=== PATIENT | female | born 1955 | race Caucasian/White ===

== ENCOUNTER → 2016-12-04 | Outpatient (CLI) | payer MEDICARE ==
[~2016-12-04] MED LIST: AVONEX30 MCG/0.5 MR; B COMPLEX1 CAP PO; CALCIUM PLUS1 TA1 PO; CHROMIUM PICO500 MCG PO; CIPROFLOXACIN500 MG PO; CLINDAMYCIN PHOSPH1% TP; FLAXSEED MEAL1 POW; GARLIC1000 MG PO; KLOR-CON M2020 MEQ PO; MINOCYCLINE HC100 MG PO; TRIAMTERENE/HCT1 CAP PO; VICODIN ES 7501 TAB PO; VITAMIN D2000 IU PO; WOMEN'S MULTIVI1 TAB PO; ZINC30 MG PO; [UNRECOGNIZED DRUG - OTHER]
== END | disposition home or self-care (01) ==
LOC: US 14:35
DX: D25.1 Intramural leiomyoma of uterus (principal); N85.4 Malposition of uterus

== ENCOUNTER 2017-04-15 23:23 | Emergency (ER) | payer MEDICARE ==
[~2017-04-15] VITALS: Ht 165.1 cm; Wt 81.6 kg
[2017-04-16 00:10] LABS: BASO % 0.7 % (0.0-1.0); EOS # 0.1 10*3/uL (0.0-0.4); EOS % 1.3 % (1.0-4.0); HEMATOCRIT 41.6 % (37.0-47.0); HEMOGLOBIN 14.1 g/dl (12.0-16.0); LYMPH # 1.3 10*3/uL (1.3-4.4); LYMPH % 28.9 % (27.0-41.0); MEAN CELL VOLUME 94.5 fl (81.0-99.0); MEAN CORPUSCULAR HGB CONC 33.9 g/dl (33.0-37.0); MEAN PLATELET VOLUME 10.6 fl (9.6-12.3); MONO # 0.5 10*3/uL (0.1-1.0); MONO % 10.4 % (3.0-9.0); NEUT # 2.7 10*3/uL (2.3-7.9); NEUT % 58.7 % (47.0-73.0); PLATELET COUNT AUTOMATED 159 10*3/uL (130-400); RED CELL DISTRI WIDTH 13.1 % (0-14.5); WHITE BLOOD COUNT 4.6 10*3/uL (4.8-10.8)
[2017-04-16 00:29] LABS: ALKALINE PHOSPHATASE 89 U/L (45-117); BUN 18 mg/dl (7-24); CHLORIDE 97 mmol/L (98-107); CREATININE 0.84 mg/dL (0.55-1.02); SGOT/AST 15 IU/L (3-35); SGPT/ALT 26 U/L (12-78); SODIUM 135 mmol/L (136-145); TOTAL PROTEIN 7.3 gm/dL (6.4-8.2)
[2017-04-16 00:30] LABS: TROPONIN I < 0.015 ng/ml (<0.045)
== END 2017-04-16 02:49 | disposition home or self-care (01) ==
LOC: ED 23:23
PROVIDERS: Emergency Medicine Emergency Medical Services
DX: R07.89 Other chest pain (principal); G35 Multiple sclerosis; I10 Essential (primary) hypertension; Z79.899 Other long term (current) drug therapy; Z88.8 Allergy status to other drugs, medicaments and biological substances; Z88.3 Allergy status to other anti-infective agents; Z82.49 Family history of ischemic heart disease and other diseases of the circulatory system

== ENCOUNTER → 2017-04-24 | Outpatient (CLI) | payer MEDICARE, OTHER | END | disposition home or self-care (01) | LOC: LAB 02:01 → MRI 08:00 → LAB 09:00 → US 10:00 | DX: K80.20 Calculus of gallbladder without cholecystitis without obstruction (principal); I10 Essential (primary) hypertension; E55.9 Vitamin D deficiency, unspecified; Z79.899 Other long term (current) drug therapy; Z83.3 Family history of diabetes mellitus; Z90.49 Acquired absence of other specified parts of digestive tract ==

== ENCOUNTER → 2017-05-28 | Outpatient (CLI) | payer MEDICARE ==
[2017-05-28 11:12] LABS: THYROXINE (T4) TOTAL 8.3 ug/dl (4.8-13.9)
[2017-05-28 11:20] LABS: THYROID STIM HORMONE (HS) 2.81 uIU/ml (0.358-4.75)
== END | disposition home or self-care (01) ==
LOC: LAB 10:08 → MAMMO 11:00
PROVIDERS: Family Medicine
DX: Z12.31 Encounter for screening mammogram for malignant neoplasm of breast (principal); I10 Essential (primary) hypertension; R53.83 Other fatigue; Z83.49 Family history of other endocrine, nutritional and metabolic diseases

== ENCOUNTER → 2017-12-02 | Outpatient (CLI) | payer MEDICARE | END | disposition home or self-care (01) | LOC: LAB 10:36 | DX: I10 Essential (primary) hypertension (principal); R60.0 Localized edema; Z79.899 Other long term (current) drug therapy ==

== ENCOUNTER 2018-01-07 21:05 | Emergency (ER) | payer MEDICARE ==
[~2018-01-07] VITALS: Wt 88.9 kg
--- NOTE | ~2018-01-07 | EKG ---
[place], [place] ELECTROCARDIOGRAM REPORT NAME: IDA LINCOLN UNIT #: [id number] ROOM: DOCTOR: EPIPHANY DRAFT REPORT BIRTHDATE: [birth year] 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
[2018-01-07 21:49] LABS: BASO % 0.4 % (0.0-1.0); EOS % 0.4 % (1.0-4.0); HEMATOCRIT 41.3 % (37.0-47.0); HEMOGLOBIN 14.3 g/dl (12.0-16.0); LYMPH # 0.8 10*3/uL (1.3-4.4); LYMPH % 18.1 % (27.0-41.0); MEAN CELL VOLUME 92.8 fl (81.0-99.0); MEAN CORPUSCULAR HGB 32.1 pg (27.0-31.0); MEAN CORPUSCULAR HGB CONC 34.6 g/dl (33.0-37.0); MEAN PLATELET VOLUME 10.8 fl (9.6-12.3); MONO # 0.7 10*3/uL (0.1-1.0); MONO % 15.2 % (3.0-9.0); NEUT % 65.7 % (47.0-73.0); PLATELET COUNT AUTOMATED 140 10*3/uL (130-400); RED BLOOD COUNT 4.45 10*6/uL (4.10-5.10); RED CELL DISTRI WIDTH 12.8 % (0-14.5); WHITE BLOOD COUNT 4.5 10*3/uL (4.8-10.8)
[2018-01-07 21:57] LABS: ACT PARTIAL THROMBO TIME 27.9 SECONDS (20.8-31.5)
[2018-01-07 22:09] LABS: ALBUMIN 3.9 gm/dl (3.1-4.5); ALKALINE PHOSPHATASE 78 U/L (45-117); BUN 13 mg/dl (7-24); CHLORIDE 94 mmol/L (98-107); CREATININE 0.74 mg/dL (0.55-1.02); POTASSIUM 3.8 mmol/L (3.5-5.1); SGOT/AST 13 IU/L (3-35); SGPT/ALT 23 U/L (12-78); SODIUM 130 mmol/L (136-145); TOTAL PROTEIN 7.3 gm/dL (6.4-8.2)
[2018-01-07 22:11] LABS: TROPONIN I < 0.015 ng/ml (<0.045)
== END 2018-01-08 00:10 | disposition home or self-care (01) ==
LOC: ED 21:05
PROVIDERS: Emergency Medicine Emergency Medical Services
DX: R07.89 Other chest pain (principal); P74.2 Disturbances of sodium balance of newborn; Z79.899 Other long term (current) drug therapy; Z88.3 Allergy status to other anti-infective agents; Z88.8 Allergy status to other drugs, medicaments and biological substances

== ENCOUNTER → 2018-03-16 | Outpatient (CLI) | payer MEDICARE ==
[2018-03-16 09:54] LABS: BUN 16 mg/dl (7-24); CHLORIDE 100 mmol/L (98-107); CREATININE 0.95 mg/dL (0.55-1.02); POTASSIUM 4.2 mmol/L (3.5-5.1); SODIUM 135 mmol/L (136-145)
== END | disposition home or self-care (01) ==
LOC: LAB 08:56
PROVIDERS: Internal Medicine
DX: I10 Essential (primary) hypertension (principal); E87.1 Hypo-osmolality and hyponatremia

== ENCOUNTER → 2018-03-25 | Outpatient (CLI) | payer MEDICARE ==
[2018-03-25 10:47] LABS: BUN 17 mg/dl (7-24); CHLORIDE 103 mmol/L (98-107); CREATININE 0.73 mg/dL (0.55-1.02); POTASSIUM 3.9 mmol/L (3.5-5.1); SODIUM 140 mmol/L (136-145)
== END | disposition home or self-care (01) ==
LOC: LAB 09:46
PROVIDERS: Internal Medicine
DX: I10 Essential (primary) hypertension (principal); E87.1 Hypo-osmolality and hyponatremia

== ENCOUNTER → 2018-04-05 | Outpatient (CLI) | payer MEDICARE ==
[2018-04-05 10:49] LABS: BUN 15 mg/dl (7-24); CHLORIDE 104 mmol/L (98-107); CREATININE 0.81 mg/dL (0.55-1.02); POTASSIUM 3.8 mmol/L (3.5-5.1); SODIUM 140 mmol/L (136-145)
== END | disposition home or self-care (01) ==
LOC: LAB 09:29
PROVIDERS: Internal Medicine
DX: I10 Essential (primary) hypertension (principal); E87.1 Hypo-osmolality and hyponatremia; N39.0 Urinary tract infection, site not specified; R31.9 Hematuria, unspecified; N13.30 Unspecified hydronephrosis

== ENCOUNTER → 2018-05-07 | Outpatient (CLI) | payer MEDICARE ==
[2018-05-07 12:36] LABS: BUN 20 mg/dl (7-24); CHLORIDE 103 mmol/L (98-107); CREATININE 0.76 mg/dL (0.55-1.02); SODIUM 140 mmol/L (136-145)
== END | disposition home or self-care (01) ==
LOC: LAB 11:31
PROVIDERS: Family Medicine
DX: I10 Essential (primary) hypertension (principal)

== ENCOUNTER → 2018-06-23 | Outpatient (CLI) | payer OTHER ==
[~2018-06-23] MED LIST changes: +BIOTIN1 M1 PO; +LISINOPRIL5 MG PO; +LOPRESSOR25 MG PO; +PROBIOTIC1 EAC1 PO; +TRIAMTERENE & H1 CAP PO; +VITAMIN E400 UNI2 PO
--- NOTE | ~2018-06-23 | EKG ---
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
== END | disposition home or self-care (01) ==
LOC: LAB 14:38
DX: N39.0 Urinary tract infection, site not specified (principal)

== ENCOUNTER 2018-06-28 10:54 | Inpatient (IN) | payer OTHER ==
[~2018-06-28] VITALS: Ht 165.1 cm; Wt 88.9 kg
--- NOTE | ~2018-06-28 | EKG ---
[place], [place] ELECTROCARDIOGRAM REPORT NAME: IDA LINCOLN UNIT #: [id number] ROOM: 515 DOCTOR: AUGUSTUS DRAFT REPORT BIRTHDATE: [birth year] [facility] Test Date: 2018-06-28 Test Time: 11:01:35 Pat Name: IDA LINCOLN Department: Room: [facility] Gender: F Library Assistant: Erica Key : 1955 Requested By: MICHELE SUE Order Number: [id number] Reading MD: Win Yuan MD Measurements Intervals [place] Rate: 72 P: GA: QRS: 73 QRSD: 106 T: 17 QT: 378 QTc: 414 Interpretive Statements Normal sinus rhythm Compared to ECG 01/07/2018 22:07:34 No significant change Electronically Signed On 06-28-2018 16:02:58 PST by Win Yuan MD CM:EKGRPT:ELECTROCARDIOGRAM REPORT 1101 [id number] MICHELE LU DRAFT REPORT
--- NOTE | ~2018-06-28 | EKG ---
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
--- NOTE | ~2018-06-28 | EKG ---
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
[~2018-06-28 10:54] MED LIST changes: -BIOTIN1 M1 PO; -LISINOPRIL5 MG PO; -LOPRESSOR25 MG PO; -PROBIOTIC1 EAC1 PO; -TRIAMTERENE & H1 CAP PO; -VITAMIN E400 UNI2 PO
[2018-06-28 10:55] VITALS: BP 140/63
[2018-06-28 11:22] LABS: BASO % 0.6 % (0.0-1.0); EOS % 0.2 % (1.0-4.0); HEMATOCRIT 44.5 % (37.0-47.0); HEMOGLOBIN 15.1 g/dl (12.0-16.0); LYMPH # 0.9 10*3/uL (1.3-4.4); LYMPH % 19.2 % (27.0-41.0); MEAN CELL VOLUME 95.3 fl (81.0-99.0); MEAN CORPUSCULAR HGB 32.3 pg (27.0-31.0); MEAN CORPUSCULAR HGB CONC 33.9 g/dl (33.0-37.0); MEAN PLATELET VOLUME 9.8 fl (9.6-12.3); MONO # 0.5 10*3/uL (0.1-1.0); NEUT # 3.3 10*3/uL (2.3-7.9); NEUT % 68.8 % (47.0-73.0); PLATELET COUNT AUTOMATED 196 10*3/uL (130-400); RED BLOOD COUNT 4.67 10*6/uL (4.10-5.10); RED CELL DISTRI WIDTH 12.2 % (0-14.5); WHITE BLOOD COUNT 4.8 10*3/uL (4.8-10.8)
[2018-06-28 11:33] LABS: ACT PARTIAL THROMBO TIME 25.5 SECONDS (20.8-31.5)
[2018-06-28 11:38] LABS: ALKALINE PHOSPHATASE 72 U/L (45-117); BUN 19 mg/dl (7-24); CHLORIDE 98 mmol/L (98-107); CREATININE 0.78 mg/dL (0.55-1.02); POTASSIUM 3.9 mmol/L (3.5-5.1); SGOT/AST 13 IU/L (3-35); SGPT/ALT 21 U/L (12-78); SODIUM 133 mmol/L (136-145); TOTAL PROTEIN 7.4 gm/dL (6.4-8.2)
[2018-06-28 11:41] LABS: TROPONIN I < 0.015 ng/ml (<0.045)
[2018-06-28 12:14] VITALS: BP 138/70
[2018-06-28 16:00] VITALS: BP 160/63
[2018-06-28] MEDS ORDERED: PROBIOTIC1 EAC1 PO (16:19)
[2018-06-28] MEDS ORDERED: BIOTIN1 M1 PO (16:20)
[2018-06-28] MEDS ORDERED: VITAMIN E400 UNI2 PO (16:23)
[2018-06-28] MEDS ORDERED: LISINOPRIL5 MG PO (16:56)
[2018-06-28 20:00] VITALS: BP 127/54
[2018-06-29] VITALS: BP 133/64
[2018-06-29 06:49] LABS: BASO % 0.9 % (0.0-1.0); EOS # 0.1 10*3/uL (0.0-0.4); EOS % 1.9 % (1.0-4.0); HEMOGLOBIN 13.2 g/dl (12.0-16.0); LYMPH # 1.8 10*3/uL (1.3-4.4); LYMPH % 39.2 % (27.0-41.0); MEAN CELL VOLUME 95.1 fl (81.0-99.0); MEAN CORPUSCULAR HGB 32.2 pg (27.0-31.0); MEAN CORPUSCULAR HGB CONC 33.8 g/dl (33.0-37.0); MEAN PLATELET VOLUME 10.2 fl (9.6-12.3); MONO # 0.7 10*3/uL (0.1-1.0); MONO % 14.3 % (3.0-9.0); NEUT % 43.5 % (47.0-73.0); PLATELET COUNT AUTOMATED 181 10*3/uL (130-400); RED CELL DISTRI WIDTH 12.3 % (0-14.5); WHITE BLOOD COUNT 4.7 10*3/uL (4.8-10.8)
[2018-06-29 06:57] LABS: ALBUMIN 3.1 gm/dl (3.1-4.5); ALKALINE PHOSPHATASE 60 U/L (45-117); BUN 16 mg/dl (7-24); CHLORIDE 100 mmol/L (98-107); CHOLESTEROL 152 mg/dL (<200); CREATININE 0.64 mg/dL (0.55-1.02); HDL CHOLESTEROL 82 mg/dl (40-60); LDL CHOLESTEROL 62 mg/dL (9-159); PHOSPHOROUS 3.7 mg/dL (2.5-4.9); POTASSIUM 3.6 mmol/L (3.5-5.1); SGOT/AST 10 IU/L (3-35); SGPT/ALT 19 U/L (12-78); SODIUM 136 mmol/L (136-145); TRIGLYCERIDES 39 mg/dl (<150); VLDL CHOLESTEROL 8 mg/dL (6-40)
[2018-06-29 07:33] LABS: VITAMIN D, 25-HYDROXY 57.7 ng/mL (30-100)
[2018-06-29 08:00] VITALS: BP 130/73
[2018-06-29] MEDS ORDERED: TRIAMTERENE & H1 CAP PO (11:01)
[2018-06-29] MEDS ORDERED: LOPRESSOR25 MG PO (14:10)
[2018-06-29 14:22] VITALS: BP 117/79
[2018-06-29 16:00] VITALS: BP 117/79
== END 2018-06-29 17:33 | disposition home or self-care (01) | DRG 309 ==
LOC: ED 10:54 → EDHOLD 13:28 → 5E 13:28
PROVIDERS: Emergency Medicine; Family Medicine; ADMIT Family Medicine
DX: R00.2 Palpitations (principal); E87.1 Hypo-osmolality and hyponatremia; N13.0 Hydronephrosis with ureteropelvic junction obstruction; K21.9 Gastro-esophageal reflux disease without esophagitis; F41.9 Anxiety disorder, unspecified; K80.20 Calculus of gallbladder without cholecystitis without obstruction; R07.89 Other chest pain; R73.9 Hyperglycemia, unspecified; E80.6 Other disorders of bilirubin metabolism; G35 Multiple sclerosis; E66.9 Obesity, unspecified; M19.90 Unspecified osteoarthritis, unspecified site; I10 Essential (primary) hypertension; Z88.1 Allergy status to other antibiotic agents; Z88.8 Allergy status to other drugs, medicaments and biological substances; Z82.49 Family history of ischemic heart disease and other diseases of the circulatory system; Z79.899 Other long term (current) drug therapy; Z68.32 Body mass index [BMI] 32.0-32.9, adult

== ENCOUNTER → 2018-08-05 | Outpatient (CLI) | payer OTHER ==
[~2018-08-05] MED LIST changes: +BIOTIN1 M1 PO; +LISINOPRIL5 MG PO; +LOPRESSOR25 MG PO; +PROBIOTIC1 EAC1 PO; +TRIAMTERENE & H1 CAP PO; +VITAMIN E400 UNI2 PO
== END | disposition home or self-care (01) ==
LOC: MAMMO 09:39
DX: Z12.31 Encounter for screening mammogram for malignant neoplasm of breast (principal)

== ENCOUNTER → 2018-09-20 | Outpatient (CLI) | payer OTHER ==
[2018-09-20 09:15] LABS: BASO % 1.1 % (0.0-1.0); EOS # 0.1 10*3/uL (0.0-0.4); EOS % 3.4 % (1.0-4.0); HEMATOCRIT 39.9 % (37.0-47.0); HEMOGLOBIN 12.6 g/dl (12.0-16.0); LYMPH # 1.2 10*3/uL (1.3-4.4); LYMPH % 33.5 % (27.0-41.0); MEAN CELL VOLUME 98.3 fl (81.0-99.0); MEAN CORPUSCULAR HGB CONC 31.6 g/dl (33.0-37.0); MEAN PLATELET VOLUME 11.2 fl (9.6-12.3); MONO # 0.6 10*3/uL (0.1-1.0); MONO % 15.4 % (3.0-9.0); NEUT # 1.7 10*3/uL (2.3-7.9); NEUT % 46.3 % (47.0-73.0); PLATELET COUNT AUTOMATED 164 10*3/uL (130-400); RED BLOOD COUNT 4.06 10*6/uL (4.10-5.10); WHITE BLOOD COUNT 3.6 10*3/uL (4.8-10.8)
[2018-09-20 09:34] LABS: ALBUMIN 3.3 gm/dl (3.1-4.5); ALKALINE PHOSPHATASE 94 U/L (45-117); BUN 20 mg/dl (7-24); CHLORIDE 107 mmol/L (98-107); CREATININE 0.75 mg/dL (0.55-1.02); POTASSIUM 4.1 mmol/L (3.5-5.1); SGOT/AST 14 IU/L (3-35); SGPT/ALT 22 U/L (12-78); SODIUM 140 mmol/L (136-145); TOTAL PROTEIN 6.5 gm/dL (6.4-8.2)
[2018-09-22 16:05] LABS: % CD19 <1 % (6-23); % CD3 81 % (62-87); % CD4 63 % (32-64); % CD45RA 45 % (28-71); % CD45RO 55 % (28-72); % CD8 21 % (15-46); ABSOLUTE CD19 <1 cells/uL (91-610); ABSOLUTE CD3 1136 cells/uL (570-2400); ABSOLUTE CD4 876 cells/uL (430-1800); ABSOLUTE CD45RA 403 cells/uL (150-870); ABSOLUTE CD45RO 489 cells/uL (190-1050); ABSOLUTE CD8 291 cells/uL (210-1200); ABSOLUTE NATURAL KILLER CELLS 232 cells/uL (78-470); NATURAL KILLER CELLS % 17 % (4-26)
== END | disposition home or self-care (01) ==
LOC: LAB 09-17 10:05
PROVIDERS: Specialist
DX: G35 Multiple sclerosis (principal); Z79.899 Other long term (current) drug therapy

== ENCOUNTER → 2018-10-13 | Outpatient (CLI) | payer OTHER | END | disposition home or self-care (01) | LOC: US 10-11 06:30 | DX: N13.30 Unspecified hydronephrosis (principal) ==

== ENCOUNTER → 2018-12-13 | Outpatient (CLI) | payer OTHER | END | disposition home or self-care (01) | LOC: LAB 11:58 | DX: N39.0 Urinary tract infection, site not specified (principal) ==

== ENCOUNTER → 2019-01-15 | Outpatient (CLI) | payer OTHER | END | disposition home or self-care (01) | LOC: LAB 16:50 | DX: N39.0 Urinary tract infection, site not specified (principal); N13.30 Unspecified hydronephrosis; R31.9 Hematuria, unspecified ==

== ENCOUNTER → 2019-03-07 | Outpatient (CLI) | payer OTHER ==
[2019-03-07 16:13] LABS: BILIRUBIN NEGATIVE (NEGATIVE); BLOOD 3+ (NEGATIVE); CLARITY SL CLOUDY (CLEAR); COLOR YELLOW (YELLOW); GLUCOSE NEGATIVE (NEGATIVE); KETONE NEGATIVE (NEGATIVE); LEUKO ESTERASE NEGATIVE (NEGATIVE); NITRITE NEGATIVE (NEGATIVE); UROBILINOGEN 0.2 E.U./dl (0.2-1.0)
[2019-03-07 16:30] LABS: BACTERIA TRACE; RBC 51-100 rbc/hpf (0-2)
== END | disposition home or self-care (01) ==
LOC: LAB 14:38
PROVIDERS: Specialist
DX: D89.9 Disorder involving the immune mechanism, unspecified (principal); G35 Multiple sclerosis; Z79.899 Other long term (current) drug therapy

== ENCOUNTER → 2019-03-10 | Outpatient (CLI) | payer OTHER | END | disposition home or self-care (01) | LOC: LAB 13:21 | PROVIDERS: Specialist | DX: R19.7 Diarrhea, unspecified (principal) ==

== ENCOUNTER → 2019-05-25 | Outpatient (CLI) | payer OTHER | END | disposition home or self-care (01) | LOC: MRI 09:38 | DX: M47.814 Spondylosis without myelopathy or radiculopathy, thoracic region (principal); G35 Multiple sclerosis; I10 Essential (primary) hypertension ==

== ENCOUNTER → 2019-08-18 | Outpatient (CLI) | payer OTHER | END | disposition home or self-care (01) | LOC: MAMMO 00:32 | DX: Z12.31 Encounter for screening mammogram for malignant neoplasm of breast (principal) ==

== ENCOUNTER → 2019-09-29 | Outpatient (CLI) | payer OTHER ==
[2019-09-29 14:58] LABS: BILIRUBIN NEGATIVE (NEGATIVE); BLOOD NEGATIVE (NEGATIVE); CLARITY SL CLOUDY (CLEAR); COLOR YELLOW (YELLOW); GLUCOSE NEGATIVE (NEGATIVE); KETONE NEGATIVE (NEGATIVE); LEUKO ESTERASE NEGATIVE (NEGATIVE); NITRITE NEGATIVE (NEGATIVE); UROBILINOGEN 0.2 E.U./dl (0.2-1.0)
[2019-09-29 15:05] LABS: BACTERIA 1+; EPITHELIAL CELLS 0-2; RBC 0-2 rbc/hpf (0-2)
== END ==
LOC: LAB 13:54
DX: R10.9 Unspecified abdominal pain (principal)

== ENCOUNTER → 2019-10-10 | Outpatient (CLI) | payer MEDICARE ==
[2019-10-10 12:35] LABS: BASO % 0.9 % (0.0-1.0); EOS # 0.1 10*3/uL (0.0-0.4); EOS % 2.9 % (1.0-4.0); HEMATOCRIT 41.7 % (37.0-47.0); LYMPH # 1.1 10*3/uL (1.3-4.4); MEAN CELL VOLUME 100.2 fl (81.0-99.0); MEAN CORPUSCULAR HGB 32.5 pg (27.0-31.0); MEAN CORPUSCULAR HGB CONC 32.4 g/dl (33.0-37.0); MEAN PLATELET VOLUME 10.2 fl (9.6-12.3); MONO # 0.6 10*3/uL (0.1-1.0); MONO % 12.8 % (3.0-9.0); NEUT # 2.6 10*3/uL (2.3-7.9); NEUT % 59.2 % (47.0-73.0); PLATELET COUNT AUTOMATED 168 10*3/uL (130-400); RED BLOOD COUNT 4.16 10*6/uL (4.10-5.10); RED CELL DISTRI WIDTH 13.4 % (0-14.5); WHITE BLOOD COUNT 4.5 10*3/uL (4.8-10.8)
[2019-10-10 13:17] LABS: VITAMIN D, 25-HYDROXY 52.9 ng/mL (30-100)
[2019-10-12 17:07] LABS: % CD19 <1 % (5-21); % CD3 83 % (62-89); % CD4 65 % (35-68); % CD45RA 38 % (19-62); % CD45RO 62 % (38-81); % CD8 21 % (10-46); ABSOLUTE CD19 <1 cells/uL (74-510); ABSOLUTE CD3 946 cells/uL (660-2200); ABSOLUTE CD4 740 cells/uL (490-1600); ABSOLUTE CD45RA 271 cells/uL (260-1000); ABSOLUTE CD45RO 438 cells/uL (490-1200); ABSOLUTE CD8 236 cells/uL (150-1050); ABSOLUTE NATURAL KILLER CELLS 178 cells/uL (74-620); NATURAL KILLER CELLS % 16 % (5-28)
== END | disposition home or self-care (01) ==
LOC: LAB 11:48
PROVIDERS: Specialist
DX: G35 Multiple sclerosis (principal); E53.8 Deficiency of other specified B group vitamins; E55.9 Vitamin D deficiency, unspecified; E53.9 Vitamin B deficiency, unspecified; Z79.899 Other long term (current) drug therapy

== ENCOUNTER → 2020-02-08 | Outpatient (CLI) | payer MEDICARE ==
[2020-02-10 16:08] LABS: % CD19 0 % (5-21); % CD3 76 % (62-89); % CD4 55 % (35-68); % CD45RA 48 % (19-62); % CD45RO 52 % (38-81); % CD8 22 % (10-46); ABSOLUTE CD19 5 cells/uL (74-510); ABSOLUTE CD3 1011 cells/uL (660-2200); ABSOLUTE CD4 735 cells/uL (490-1600); ABSOLUTE CD45RA 378 cells/uL (260-1000); ABSOLUTE CD45RO 414 cells/uL (490-1200); ABSOLUTE CD8 293 cells/uL (150-1050); ABSOLUTE NATURAL KILLER CELLS 301 cells/uL (74-620); NATURAL KILLER CELLS % 23 % (5-28)
== END | disposition home or self-care (01) ==
LOC: LAB 11:37
PROVIDERS: ATTEND Physician Assistant Medical
DX: D73.9 Disease of spleen, unspecified (principal); D89.9 Disorder involving the immune mechanism, unspecified

== ENCOUNTER → 2020-04-11 | Outpatient (CLI) | payer MEDICARE ==
[2020-04-11 16:15] LABS: BASO % 0.5 % (0.0-1.0); EOS # 0.1 10*3/uL (0.0-0.4); EOS % 2.5 % (1.0-4.0); HEMATOCRIT 41.6 % (37.0-47.0); LYMPH # 1.8 10*3/uL (1.3-4.4); LYMPH % 32.3 % (27.0-41.0); MEAN CELL VOLUME 98.1 fl (81.0-99.0); MEAN CORPUSCULAR HGB 30.9 pg (27.0-31.0); MEAN CORPUSCULAR HGB CONC 31.5 g/dl (33.0-37.0); MEAN PLATELET VOLUME 10.7 fl (9.6-12.3); MONO # 0.6 10*3/uL (0.1-1.0); MONO % 11.2 % (3.0-9.0); NEUT % 53.3 % (47.0-73.0); PLATELET COUNT AUTOMATED 217 10*3/uL (130-400); RED BLOOD COUNT 4.24 10*6/uL (4.10-5.10); WHITE BLOOD COUNT 5.6 10*3/uL (4.8-10.8)
[2020-04-11 16:34] LABS: ALBUMIN 3.8 gm/dl (3.1-4.5); BUN 23 mg/dl (7-24); CHLORIDE 105 mmol/L (98-107); CREATININE 0.79 mg/dL (0.55-1.02); POTASSIUM 4.1 mmol/L (3.5-5.1); SGOT/AST 17 IU/L (3-35); SGPT/ALT 34 U/L (12-78); SODIUM 137 mmol/L (136-145); TOTAL PROTEIN 7.4 gm/dL (6.4-8.2)
[2020-04-11 16:35] LABS: ALKALINE PHOSPHATASE 95 U/L (45-117)
[2020-04-13 17:10] LABS: % CD19 0 % (5-21); % CD3 85 % (62-89); % CD4 63 % (35-68); % CD45RA 44 % (19-62); % CD45RO 56 % (38-81); % CD8 25 % (10-46); ABSOLUTE CD19 4 cells/uL (74-510); ABSOLUTE CD3 1451 cells/uL (660-2200); ABSOLUTE CD4 1086 cells/uL (490-1600); ABSOLUTE CD45RA 439 cells/uL (260-1000); ABSOLUTE CD45RO 556 cells/uL (490-1200); ABSOLUTE CD8 425 cells/uL (150-1050); ABSOLUTE NATURAL KILLER CELLS 252 cells/uL (74-620); CD4:CD8 RATIO 2.52 ratio (0.80-6.17); NATURAL KILLER CELLS % 15 % (5-28)
== END | disposition home or self-care (01) ==
LOC: LAB 15:50
PROVIDERS: ATTEND Specialist
DX: G35 Multiple sclerosis (principal); R53.1 Weakness; R27.0 Ataxia, unspecified; Z79.899 Other long term (current) drug therapy; D89.9 Disorder involving the immune mechanism, unspecified

== ENCOUNTER → 2020-05-14 | Outpatient (CLI) | payer MEDICARE ==
[2020-05-14 10:53] LABS: BASO % 0.8 % (0.0-1.0); EOS # 0.2 10*3/uL (0.0-0.4); EOS % 3.6 % (1.0-4.0); HEMATOCRIT 41.7 % (37.0-47.0); LYMPH # 1.3 10*3/uL (1.3-4.4); LYMPH % 27.1 % (27.0-41.0); MEAN CELL VOLUME 97.9 fl (81.0-99.0); MEAN CORPUSCULAR HGB CONC 31.7 g/dl (33.0-37.0); MONO # 0.7 10*3/uL (0.1-1.0); NEUT # 2.6 10*3/uL (2.3-7.9); NEUT % 53.3 % (47.0-73.0); PLATELET COUNT AUTOMATED 224 10*3/uL (130-400); RED BLOOD COUNT 4.26 10*6/uL (4.10-5.10); RED CELL DISTRI WIDTH 13.8 % (0-14.5); WHITE BLOOD COUNT 4.9 10*3/uL (4.8-10.8)
[2020-05-14 11:19] LABS: ALBUMIN 3.6 gm/dl (3.1-4.5); BUN 23 mg/dl (7-24); CHLORIDE 107 mmol/L (98-107); CREATININE 0.72 mg/dL (0.55-1.02); SGOT/AST 18 IU/L (3-35); SGPT/ALT 34 U/L (12-78); SODIUM 142 mmol/L (136-145)
[2020-05-14 11:21] LABS: ALKALINE PHOSPHATASE 94 U/L (45-117); TOTAL PROTEIN 6.9 gm/dL (6.4-8.2)
[2020-05-16 21:10] LABS: % CD19 0 % (5-21); % CD3 80 % (62-89); % CD4 59 % (35-68); % CD45RA 48 % (19-62); % CD45RO 51 % (38-81); % CD8 25 % (10-46); ABSOLUTE CD19 2 cells/uL (74-510); ABSOLUTE CD3 1084 cells/uL (660-2200); ABSOLUTE CD4 794 cells/uL (490-1600); ABSOLUTE CD45RA 375 cells/uL (260-1000); ABSOLUTE CD45RO 398 cells/uL (490-1200); ABSOLUTE CD8 336 cells/uL (150-1050); ABSOLUTE NATURAL KILLER CELLS 263 cells/uL (74-620); CD4:CD8 RATIO 2.36 ratio (0.80-6.17); NATURAL KILLER CELLS % 19 % (5-28)
== END | disposition home or self-care (01) ==
LOC: LAB 10:33
PROVIDERS: ATTEND Specialist
DX: G35 Multiple sclerosis (principal); D89.9 Disorder involving the immune mechanism, unspecified; R53.1 Weakness; R27.0 Ataxia, unspecified; Z79.899 Other long term (current) drug therapy

== ENCOUNTER → 2020-06-04 | Outpatient (CLI) | payer MEDICARE | END | disposition home or self-care (01) | LOC: LAB 14:00 | PROVIDERS: ATTEND Urology | DX: N20.0 Calculus of kidney (principal) ==

== ENCOUNTER → 2020-06-20 | Outpatient (CLI) | payer MEDICARE ==
[2020-06-20 11:36] LABS: BASO % 0.8 % (0.0-1.0); EOS # 0.1 10*3/uL (0.0-0.4); EOS % 2.3 % (1.0-4.0); HEMATOCRIT 41.4 % (37.0-47.0); LYMPH # 1.1 10*3/uL (1.3-4.4); LYMPH % 21.6 % (27.0-41.0); MEAN CELL VOLUME 96.1 fl (81.0-99.0); MEAN CORPUSCULAR HGB 30.6 pg (27.0-31.0); MEAN CORPUSCULAR HGB CONC 31.9 g/dl (33.0-37.0); MEAN PLATELET VOLUME 10.3 fl (9.6-12.3); MONO # 0.8 10*3/uL (0.1-1.0); MONO % 14.4 % (3.0-9.0); NEUT # 3.2 10*3/uL (2.3-7.9); NEUT % 60.7 % (47.0-73.0); PLATELET COUNT AUTOMATED 219 10*3/uL (130-400); RED BLOOD COUNT 4.31 10*6/uL (4.10-5.10); RED CELL DISTRI WIDTH 12.7 % (0-14.5); WHITE BLOOD COUNT 5.2 10*3/uL (4.8-10.8)
[2020-06-20 12:08] LABS: ALBUMIN 3.7 gm/dl (3.1-4.5); ALKALINE PHOSPHATASE 131 U/L (45-117); BUN 28 mg/dl (7-24); CHLORIDE 105 mmol/L (98-107); CREATININE 0.94 mg/dL (0.55-1.02); POTASSIUM 3.9 mmol/L (3.5-5.1); SGOT/AST 17 IU/L (3-35); SGPT/ALT 96 U/L (12-78); SODIUM 140 mmol/L (136-145); TOTAL PROTEIN 6.9 gm/dL (6.4-8.2)
[2020-06-22 20:08] LABS: % CD19 0 % (5-21); % CD3 83 % (62-89); % CD4 63 % (35-68); % CD45RA 47 % (19-62); % CD45RO 53 % (38-81); % CD8 23 % (10-46); ABSOLUTE CD19 0 cells/uL (74-510); ABSOLUTE CD3 882 cells/uL (660-2200); ABSOLUTE CD4 663 cells/uL (490-1600); ABSOLUTE CD45RA 332 cells/uL (260-1000); ABSOLUTE CD45RO 379 cells/uL (490-1200); ABSOLUTE CD8 244 cells/uL (150-1050); ABSOLUTE NATURAL KILLER CELLS 170 cells/uL (74-620); CD4:CD8 RATIO 2.74 ratio (0.80-6.17); NATURAL KILLER CELLS % 16 % (5-28)
== END | disposition home or self-care (01) ==
LOC: LAB 11:03
PROVIDERS: ATTEND Specialist
DX: G35 Multiple sclerosis (principal); R53.1 Weakness; R27.0 Ataxia, unspecified; D89.89 Other specified disorders involving the immune mechanism, not elsewhere classified; Z79.899 Other long term (current) drug therapy

== ENCOUNTER → 2020-06-29 | Outpatient (CLI) | payer MEDICARE | END | disposition home or self-care (01) | LOC: MRI 00:48 | PROVIDERS: ATTEND Specialist | DX: G35 Multiple sclerosis (principal); R53.1 Weakness; R27.0 Ataxia, unspecified; R53.83 Other fatigue ==

== ENCOUNTER → 2020-07-02 | Outpatient (CLI) | payer MEDICARE | END | disposition home or self-care (01) | LOC: MRI 00:24 | PROVIDERS: ATTEND Specialist | DX: M47.812 Spondylosis without myelopathy or radiculopathy, cervical region (principal); M25.78 Osteophyte, vertebrae; R53.1 Weakness; R27.0 Ataxia, unspecified; R53.83 Other fatigue ==

== ENCOUNTER → 2020-07-23 | Outpatient (CLI) | payer MEDICARE ==
[2020-07-23 12:57] LABS: BASO % 0.7 % (0.0-1.0); EOS # 0.1 10*3/uL (0.0-0.4); EOS % 2.4 % (1.0-4.0); HEMATOCRIT 42.5 % (37.0-47.0); LYMPH # 1.3 10*3/uL (1.3-4.4); LYMPH % 29.2 % (27.0-41.0); MEAN CELL VOLUME 96.8 fl (81.0-99.0); MEAN CORPUSCULAR HGB 31.2 pg (27.0-31.0); MEAN CORPUSCULAR HGB CONC 32.2 g/dl (33.0-37.0); MEAN PLATELET VOLUME 10.8 fl (9.6-12.3); MONO # 0.6 10*3/uL (0.1-1.0); MONO % 12.6 % (3.0-9.0); NEUT # 2.5 10*3/uL (2.3-7.9); NEUT % 54.9 % (47.0-73.0); PLATELET COUNT AUTOMATED 195 10*3/uL (130-400); RED BLOOD COUNT 4.39 10*6/uL (4.10-5.10); RED CELL DISTRI WIDTH 12.7 % (0-14.5); WHITE BLOOD COUNT 4.5 10*3/uL (4.8-10.8)
[2020-07-23 13:23] LABS: ALBUMIN 3.7 gm/dl (3.1-4.5); ALKALINE PHOSPHATASE 106 U/L (45-117); BUN 23 mg/dl (7-24); CHLORIDE 105 mmol/L (98-107); CREATININE 0.74 mg/dL (0.55-1.02); SGOT/AST 9 IU/L (3-35); SGPT/ALT 23 U/L (12-78); SODIUM 140 mmol/L (136-145); TOTAL PROTEIN 7.3 gm/dL (6.4-8.2)
[2020-07-23 14:09] LABS: VITAMIN D, 25-HYDROXY 66.8 ng/mL (30-100)
[2020-07-25 19:06] LABS: % CD19 0 % (5-21); % CD3 80 % (62-89); % CD4 57 % (35-68); % CD45RA 43 % (19-62); % CD45RO 56 % (38-81); % CD8 26 % (10-46); ABSOLUTE CD19 2 cells/uL (74-510); ABSOLUTE CD3 1044 cells/uL (660-2200); ABSOLUTE CD4 740 cells/uL (490-1600); ABSOLUTE CD45RA 271 cells/uL (260-1000); ABSOLUTE CD45RO 355 cells/uL (490-1200); ABSOLUTE CD8 337 cells/uL (150-1050); ABSOLUTE NATURAL KILLER CELLS 257 cells/uL (74-620); CD4:CD8 RATIO 2.19 ratio (0.80-6.17); NATURAL KILLER CELLS % 20 % (5-28)
== END | disposition home or self-care (01) ==
LOC: LAB 12:11
PROVIDERS: ATTEND Nurse Practitioner Family
DX: G35 Multiple sclerosis (principal); E53.8 Deficiency of other specified B group vitamins; E55.9 Vitamin D deficiency, unspecified; D89.89 Other specified disorders involving the immune mechanism, not elsewhere classified; Z79.899 Other long term (current) drug therapy

== ENCOUNTER → 2020-08-21 | Outpatient (CLI) | payer MEDICARE ==
[2020-08-21 10:08] LABS: EOS # 0.1 10*3/uL (0.0-0.4); EOS % 3.4 % (1.0-4.0); HEMATOCRIT 43.7 % (37.0-47.0); LYMPH # 1.3 10*3/uL (1.3-4.4); LYMPH % 32.1 % (27.0-41.0); MEAN CELL VOLUME 96.5 fl (81.0-99.0); MEAN CORPUSCULAR HGB 30.7 pg (27.0-31.0); MEAN CORPUSCULAR HGB CONC 31.8 g/dl (33.0-37.0); MEAN PLATELET VOLUME 10.6 fl (9.6-12.3); MONO # 0.6 10*3/uL (0.1-1.0); MONO % 13.3 % (3.0-9.0); NEUT # 2.1 10*3/uL (2.3-7.9); PLATELET COUNT AUTOMATED 194 10*3/uL (130-400); RED BLOOD COUNT 4.53 10*6/uL (4.10-5.10); RED CELL DISTRI WIDTH 12.9 % (0-14.5); WHITE BLOOD COUNT 4.1 10*3/uL (4.8-10.8)
[2020-08-21 10:38] LABS: ALBUMIN 3.6 gm/dl (3.1-4.5); ALKALINE PHOSPHATASE 106 U/L (45-117); BUN 25 mg/dl (7-24); CHLORIDE 107 mmol/L (98-107); CREATININE 0.83 mg/dL (0.55-1.02); POTASSIUM 4.2 mmol/L (3.5-5.1); SGOT/AST 14 IU/L (3-35); SGPT/ALT 30 U/L (12-78); SODIUM 142 mmol/L (136-145); TOTAL PROTEIN 7.1 gm/dL (6.4-8.2)
[2020-08-23 16:07] LABS: % CD19 0 % (5-21); % CD3 80 % (62-89); % CD4 57 % (35-68); % CD45RA 43 % (19-62); % CD45RO 57 % (38-81); % CD8 24 % (10-46); ABSOLUTE CD19 5 cells/uL (74-510); ABSOLUTE CD3 1044 cells/uL (660-2200); ABSOLUTE CD4 752 cells/uL (490-1600); ABSOLUTE CD45RA 311 cells/uL (260-1000); ABSOLUTE CD45RO 408 cells/uL (490-1200); ABSOLUTE CD8 320 cells/uL (150-1050); ABSOLUTE NATURAL KILLER CELLS 255 cells/uL (74-620); CD4:CD8 RATIO 2.38 ratio (0.80-6.17); NATURAL KILLER CELLS % 19 % (5-28)
== END | disposition home or self-care (01) ==
LOC: LAB 09:47
PROVIDERS: ATTEND Nurse Practitioner Family
DX: E55.9 Vitamin D deficiency, unspecified (principal); G35 Multiple sclerosis; E53.8 Deficiency of other specified B group vitamins; D89.89 Other specified disorders involving the immune mechanism, not elsewhere classified; Z79.899 Other long term (current) drug therapy

== ENCOUNTER → 2020-09-24 | Outpatient (CLI) | payer MEDICARE ==
[2020-09-24 09:27] LABS: BASO % 0.6 % (0.0-1.0); EOS # 0.2 10*3/uL (0.0-0.4); EOS % 2.4 % (1.0-4.0); HEMATOCRIT 40.7 % (37.0-47.0); LYMPH # 1.5 10*3/uL (1.3-4.4); LYMPH % 22.6 % (27.0-41.0); MEAN CELL VOLUME 96.9 fl (81.0-99.0); MEAN CORPUSCULAR HGB 30.7 pg (27.0-31.0); MEAN CORPUSCULAR HGB CONC 31.7 g/dl (33.0-37.0); MEAN PLATELET VOLUME 11.3 fl (9.6-12.3); MONO # 0.8 10*3/uL (0.1-1.0); MONO % 11.4 % (3.0-9.0); NEUT # 4.1 10*3/uL (2.3-7.9); NEUT % 62.7 % (47.0-73.0); PLATELET COUNT AUTOMATED 205 10*3/uL (130-400); RED CELL DISTRI WIDTH 13.7 % (0-14.5); WHITE BLOOD COUNT 6.6 10*3/uL (4.8-10.8)
[2020-09-24 10:03] LABS: CHLORIDE 107 mmol/L (98-107); POTASSIUM 3.9 mmol/L (3.5-5.1); SODIUM 139 mmol/L (136-145)
[2020-09-24 10:57] LABS: ALBUMIN 3.3 gm/dl (3.1-4.5); ALKALINE PHOSPHATASE 105 U/L (45-117); BUN 31 mg/dl (7-24); CREATININE 0.96 mg/dL (0.55-1.02); SGOT/AST 12 IU/L (3-35); SGPT/ALT 21 U/L (12-78)
[2020-09-26 20:07] LABS: % CD19 2 % (5-21); % CD3 79 % (62-89); % CD4 56 % (35-68); % CD45RA 45 % (19-62); % CD45RO 55 % (38-81); % CD8 23 % (10-46); ABSOLUTE CD19 28 cells/uL (74-510); ABSOLUTE CD3 1163 cells/uL (660-2200); ABSOLUTE CD4 833 cells/uL (490-1600); ABSOLUTE CD45RA 437 cells/uL (260-1000); ABSOLUTE CD45RO 540 cells/uL (490-1200); ABSOLUTE CD8 344 cells/uL (150-1050); ABSOLUTE NATURAL KILLER CELLS 277 cells/uL (74-620); CD4:CD8 RATIO 2.43 ratio (0.80-6.17); NATURAL KILLER CELLS % 19 % (5-28)
== END | disposition home or self-care (01) ==
LOC: LAB 08:52
PROVIDERS: ATTEND Nurse Practitioner Family
DX: G35 Multiple sclerosis (principal); E55.9 Vitamin D deficiency, unspecified; E53.8 Deficiency of other specified B group vitamins; D89.89 Other specified disorders involving the immune mechanism, not elsewhere classified; Z79.899 Other long term (current) drug therapy

== ENCOUNTER → 2020-10-22 | Outpatient (CLI) | payer MEDICARE | END | disposition home or self-care (01) | LOC: MAMMO 08-20 10:00 | PROVIDERS: ATTEND Internal Medicine | DX: Z12.31 Encounter for screening mammogram for malignant neoplasm of breast (principal) ==

== ENCOUNTER → 2020-11-02 | Outpatient (CLI) | payer MEDICARE ==
[2020-11-02 08:20] LABS: BASO % 0.5 % (0.0-1.0); EOS # 0.1 10*3/uL (0.0-0.4); EOS % 2.5 % (1.0-4.0); HEMATOCRIT 41.4 % (37.0-47.0); LYMPH # 1.6 10*3/uL (1.3-4.4); LYMPH % 27.8 % (27.0-41.0); MEAN CELL VOLUME 96.7 fl (81.0-99.0); MEAN CORPUSCULAR HGB 31.3 pg (27.0-31.0); MEAN CORPUSCULAR HGB CONC 32.4 g/dl (33.0-37.0); MEAN PLATELET VOLUME 10.3 fl (9.6-12.3); MONO # 0.6 10*3/uL (0.1-1.0); NEUT # 3.4 10*3/uL (2.3-7.9); PLATELET COUNT AUTOMATED 212 10*3/uL (130-400); RED BLOOD COUNT 4.28 10*6/uL (4.10-5.10); RED CELL DISTRI WIDTH 14.4 % (0-14.5); WHITE BLOOD COUNT 5.7 10*3/uL (4.8-10.8)
[2020-11-02 08:56] LABS: ALBUMIN 3.4 gm/dl (3.1-4.5); ALKALINE PHOSPHATASE 106 U/L (45-117); BUN 32 mg/dl (7-24); CHLORIDE 106 mmol/L (98-107); CREATININE 0.91 mg/dL (0.55-1.02); POTASSIUM 3.7 mmol/L (3.5-5.1); SGOT/AST 13 IU/L (3-35); SGPT/ALT 23 U/L (12-78); SODIUM 139 mmol/L (136-145)
== END | disposition home or self-care (01) ==
LOC: LAB 07:49
PROVIDERS: ATTEND Nurse Practitioner Family
DX: E55.9 Vitamin D deficiency, unspecified (principal); E53.8 Deficiency of other specified B group vitamins; G35 Multiple sclerosis; Z79.899 Other long term (current) drug therapy

== ENCOUNTER → 2020-11-06 | Outpatient (CLI) | payer MEDICARE ==
[2020-11-08 16:07] LABS: % CD19 3 % (5-21); % CD3 77 % (62-89); % CD4 56 % (35-68); % CD45RA 45 % (19-62); % CD45RO 55 % (38-81); % CD8 21 % (10-46); ABSOLUTE CD19 44 cells/uL (74-510); ABSOLUTE CD3 1057 cells/uL (660-2200); ABSOLUTE CD4 774 cells/uL (490-1600); ABSOLUTE CD45RA 398 cells/uL (260-1000); ABSOLUTE CD45RO 485 cells/uL (490-1200); ABSOLUTE CD8 292 cells/uL (150-1050); ABSOLUTE NATURAL KILLER CELLS 259 cells/uL (74-620); CD4:CD8 RATIO 2.67 ratio (0.80-6.17); NATURAL KILLER CELLS % 19 % (5-28)
== END | disposition home or self-care (01) ==
LOC: LAB 08:57
PROVIDERS: ATTEND Nurse Practitioner Family
DX: G35 Multiple sclerosis (principal); E53.8 Deficiency of other specified B group vitamins; E55.9 Vitamin D deficiency, unspecified; D89.89 Other specified disorders involving the immune mechanism, not elsewhere classified; Z79.899 Other long term (current) drug therapy

== ENCOUNTER → 2020-12-04 | Outpatient (CLI) | payer MEDICARE ==
[2020-12-04 09:42] LABS: BASO % 0.9 % (0.0-1.0); EOS # 0.2 10*3/uL (0.0-0.4); EOS % 3.4 % (1.0-4.0); HEMATOCRIT 40.9 % (37.0-47.0); LYMPH # 1.6 10*3/uL (1.3-4.4); MEAN CELL VOLUME 97.8 fl (81.0-99.0); MEAN CORPUSCULAR HGB 31.6 pg (27.0-31.0); MEAN CORPUSCULAR HGB CONC 32.3 g/dl (33.0-37.0); MEAN PLATELET VOLUME 10.1 fl (9.6-12.3); MONO # 0.5 10*3/uL (0.1-1.0); NEUT # 2.1 10*3/uL (2.3-7.9); NEUT % 46.5 % (47.0-73.0); PLATELET COUNT AUTOMATED 194 10*3/uL (130-400); RED BLOOD COUNT 4.18 10*6/uL (4.10-5.10); WHITE BLOOD COUNT 4.4 10*3/uL (4.8-10.8)
[2020-12-04 10:21] LABS: ALBUMIN 3.1 gm/dl (3.1-4.5); ALKALINE PHOSPHATASE 105 U/L (45-117); BUN 29 mg/dl (7-24); CHLORIDE 108 mmol/L (98-107); POTASSIUM 3.9 mmol/L (3.5-5.1); SGOT/AST 10 IU/L (3-35); SGPT/ALT 22 U/L (12-78); SODIUM 140 mmol/L (136-145); TOTAL PROTEIN 6.9 gm/dL (6.4-8.2)
== END | disposition home or self-care (01) ==
LOC: LAB 09:21
PROVIDERS: ATTEND Nurse Practitioner Family
DX: E55.9 Vitamin D deficiency, unspecified (principal); D89.89 Other specified disorders involving the immune mechanism, not elsewhere classified; E53.8 Deficiency of other specified B group vitamins; Z79.899 Other long term (current) drug therapy

== ENCOUNTER → 2020-12-10 | Outpatient (CLI) | payer MEDICARE ==
[2020-12-12 19:06] LABS: % CD19 3 % (5-21); % CD3 76 % (62-89); % CD4 54 % (35-68); % CD45RA 50 % (19-62); % CD45RO 50 % (38-81); % CD8 24 % (10-46); ABSOLUTE CD19 63 cells/uL (74-510); ABSOLUTE CD3 1409 cells/uL (660-2200); ABSOLUTE CD4 1006 cells/uL (490-1600); ABSOLUTE CD45RA 523 cells/uL (260-1000); ABSOLUTE CD45RO 519 cells/uL (490-1200); ABSOLUTE CD8 449 cells/uL (150-1050); ABSOLUTE NATURAL KILLER CELLS 377 cells/uL (74-620); CD4:CD8 RATIO 2.25 ratio (0.80-6.17); NATURAL KILLER CELLS % 20 % (5-28)
== END | disposition home or self-care (01) ==
LOC: LAB 11:00
PROVIDERS: ATTEND Specialist
DX: G35 Multiple sclerosis (principal); E55.9 Vitamin D deficiency, unspecified; D89.89 Other specified disorders involving the immune mechanism, not elsewhere classified; E53.8 Deficiency of other specified B group vitamins; Z79.899 Other long term (current) drug therapy

== ENCOUNTER → 2020-12-12 | Outpatient (CLI) | payer MEDICARE | END | disposition home or self-care (01) | LOC: MRI 00:36 | PROVIDERS: ATTEND Specialist | DX: M47.816 Spondylosis without myelopathy or radiculopathy, lumbar region (principal); M48.061 Spinal stenosis, lumbar region without neurogenic claudication; N13.39 Other hydronephrosis ==

== ENCOUNTER → 2020-12-24 | Outpatient (CLI) | payer MEDICARE | END | disposition home or self-care (01) | LOC: LAB 12:00 | PROVIDERS: ATTEND Urology | DX: N20.0 Calculus of kidney (principal) ==

== ENCOUNTER → 2021-02-25 | Outpatient (CLI) | payer MEDICARE ==
[2021-02-25 10:54] LABS: BASO % 0.3 % (0.0-1.0); EOS # 0.1 10*3/uL (0.0-0.4); HEMATOCRIT 40.8 % (37.0-47.0); LYMPH # 1.3 10*3/uL (1.3-4.4); LYMPH % 20.7 % (27.0-41.0); MEAN CELL VOLUME 97.1 fl (81.0-99.0); MEAN CORPUSCULAR HGB 32.4 pg (27.0-31.0); MEAN CORPUSCULAR HGB CONC 33.3 g/dl (33.0-37.0); MEAN PLATELET VOLUME 10.2 fl (9.6-12.3); MONO # 0.7 10*3/uL (0.1-1.0); MONO % 12.1 % (3.0-9.0); NEUT % 65.7 % (47.0-73.0); PLATELET COUNT AUTOMATED 200 10*3/uL (130-400); WHITE BLOOD COUNT 6.1 10*3/uL (4.8-10.8)
[2021-02-25 11:13] LABS: ALBUMIN 3.7 gm/dl (3.1-4.5); ALKALINE PHOSPHATASE 76 U/L (45-117); BUN 17 mg/dl (7-24); CHLORIDE 107 mmol/L (98-107); CREATININE 0.74 mg/dL (0.55-1.02); POTASSIUM 3.7 mmol/L (3.5-5.1); SGOT/AST 13 IU/L (3-35); SGPT/ALT 18 U/L (12-78); SODIUM 140 mmol/L (136-145); TOTAL PROTEIN 7.1 gm/dL (6.4-8.2)
[2021-02-27 21:06] LABS: % CD19 0 % (5-21); % CD3 79 % (62-89); % CD4 58 % (35-68); % CD45RA 37 % (19-62); % CD45RO 63 % (38-81); % CD8 24 % (10-46); ABSOLUTE CD19 0 cells/uL (74-510); ABSOLUTE CD3 962 cells/uL (660-2200); ABSOLUTE CD4 701 cells/uL (490-1600); ABSOLUTE CD45RA 270 cells/uL (260-1000); ABSOLUTE CD45RO 451 cells/uL (490-1200); ABSOLUTE CD8 287 cells/uL (150-1050); ABSOLUTE NATURAL KILLER CELLS 235 cells/uL (74-620); CD4:CD8 RATIO 2.42 ratio (0.80-6.17); NATURAL KILLER CELLS % 19 % (5-28)
== END | disposition home or self-care (01) ==
LOC: LAB 10:35
PROVIDERS: ATTEND Nurse Practitioner Family
DX: G35 Multiple sclerosis (principal); R27.0 Ataxia, unspecified; R53.1 Weakness; D89.89 Other specified disorders involving the immune mechanism, not elsewhere classified; Z79.899 Other long term (current) drug therapy

== ENCOUNTER 2021-05-04 05:12 | Emergency (ER) | payer MEDICARE ==
[~2021-05-04] VITALS: Ht 162.5 cm; Wt 103.4 kg
[2021-05-04 05:54] LABS: ALBUMIN 3.7 gm/dl (3.1-4.5); ALKALINE PHOSPHATASE 94 U/L (45-117); BUN 22 mg/dl (7-24); CHLORIDE 108 mmol/L (98-107); CREATININE 0.85 mg/dL (0.55-1.02); POTASSIUM 3.8 mmol/L (3.5-5.1); SGOT/AST 26 IU/L (3-35); SGPT/ALT 35 U/L (12-78); SODIUM 138 mmol/L (136-145); TOTAL PROTEIN 7.3 gm/dL (6.4-8.2)
[2021-05-04 05:58] LABS: BASO % 0.5 % (0.0-1.0); EOS # 0.2 10*3/uL (0.0-0.4); EOS % 2.7 % (1.0-4.0); HEMATOCRIT 39.1 % (37.0-47.0); LYMPH # 1.3 10*3/uL (1.3-4.4); LYMPH % 22.4 % (27.0-41.0); MEAN CELL VOLUME 98.2 fl (81.0-99.0); MEAN CORPUSCULAR HGB 32.7 pg (27.0-31.0); MEAN CORPUSCULAR HGB CONC 33.2 g/dl (33.0-37.0); MEAN PLATELET VOLUME 11.2 fl (9.6-12.3); MONO # 0.8 10*3/uL (0.1-1.0); MONO % 14.7 % (3.0-9.0); NEUT # 3.3 10*3/uL (2.3-7.9); NEUT % 58.6 % (47.0-73.0); PLATELET COUNT AUTOMATED 220 10*3/uL (130-400); RED BLOOD COUNT 3.98 10*6/uL (4.10-5.10); RED CELL DISTRI WIDTH 13.5 % (0-14.5); WHITE BLOOD COUNT 5.7 10*3/uL (4.8-10.8)
[2021-05-04 06:20] LABS: ACT PARTIAL THROMBO TIME 27.8 SECONDS (20.0-32.1)
== END 2021-05-04 07:27 | disposition home or self-care (01) ==
LOC: ED 05:12
PROVIDERS: Internal Medicine
DX: R07.9 Chest pain, unspecified (principal); M54.2 Cervicalgia; Z88.8 Allergy status to other drugs, medicaments and biological substances; Z79.899 Other long term (current) drug therapy

== ENCOUNTER → 2021-05-22 | Outpatient (CLI) | payer MEDICARE ==
[2021-05-22 13:43] LABS: HEMATOCRIT 41.8 % (37.0-47.0); MEAN CELL VOLUME 100.7 fl (81.0-99.0); MEAN CORPUSCULAR HGB 32.8 pg (27.0-31.0); MEAN CORPUSCULAR HGB CONC 32.5 g/dl (33.0-37.0); MEAN PLATELET VOLUME 10.3 fl (9.6-12.3); PLATELET COUNT AUTOMATED 257 10*3/uL (130-400); RED BLOOD COUNT 4.15 10*6/uL (4.10-5.10); RED CELL DISTRI WIDTH 13.4 % (0-14.5); WHITE BLOOD COUNT 7.1 10*3/uL (4.8-10.8)
[2021-05-22 16:02] LABS: BASOPHILS 2 % (0-1); PLATELET SUFFICIENCY NORMAL (NORMAL); TOTAL CELLS COUNTED 100 #CELLS
[2021-05-22 16:03] LABS: BURR CELLS FEW
[2021-05-22 18:28] LABS: ALBUMIN 3.9 gm/dl (3.1-4.5); ALKALINE PHOSPHATASE 189 U/L (45-117); BUN 24 mg/dl (7-24); CHLORIDE 103 mmol/L (98-107); CREATININE 0.75 mg/dL (0.55-1.02); POTASSIUM 4.4 mmol/L (3.5-5.1); SGOT/AST 91 IU/L (3-35); SGPT/ALT 106 U/L (12-78); SODIUM 140 mmol/L (136-145)
[2021-05-24 19:06] LABS: % CD19 0 % (5-21); % CD3 78 % (62-89); % CD4 56 % (35-68); % CD45RA 45 % (19-62); % CD45RO 55 % (38-81); % CD8 23 % (10-46); ABSOLUTE CD19 0 cells/uL (74-510); ABSOLUTE CD3 1001 cells/uL (660-2200); ABSOLUTE CD4 716 cells/uL (490-1600); ABSOLUTE CD45RA 323 cells/uL (260-1000); ABSOLUTE CD45RO 399 cells/uL (490-1200); ABSOLUTE CD8 301 cells/uL (150-1050); ABSOLUTE NATURAL KILLER CELLS 271 cells/uL (74-620); CD4:CD8 RATIO 2.43 ratio (0.80-6.17); NATURAL KILLER CELLS % 21 % (5-28)
== END ==
LOC: LAB 13:18
PROVIDERS: ATTEND Specialist
DX: G35 Multiple sclerosis (principal); E55.9 Vitamin D deficiency, unspecified; D72.819 Decreased white blood cell count, unspecified; Z79.899 Other long term (current) drug therapy

== ENCOUNTER → 2021-06-03 | Outpatient (CLI) | payer MEDICARE ==
[2021-06-03 13:08] LABS: ALBUMIN 3.5 gm/dl (3.1-4.5); ALKALINE PHOSPHATASE 123 U/L (45-117); BUN 19 mg/dl (7-24); CHLORIDE 103 mmol/L (98-107); CREATININE 0.86 mg/dL (0.55-1.02); SGOT/AST 17 IU/L (3-35); SGPT/ALT 30 U/L (12-78); SODIUM 137 mmol/L (136-145)
== END | disposition home or self-care (01) ==
LOC: LAB 12:20
PROVIDERS: ATTEND Internal Medicine
DX: R74.01 Elevation of levels of liver transaminase levels (principal)

== ENCOUNTER → 2021-07-29 | Outpatient (CLI) | payer MEDICARE ==
[2021-07-29 11:23] LABS: BASO % 0.8 % (0.0-1.0); EOS # 0.2 10*3/uL (0.0-0.4); HEMATOCRIT 43.9 % (37.0-47.0); LYMPH # 1.2 10*3/uL (1.3-4.4); LYMPH % 23.6 % (27.0-41.0); MEAN CELL VOLUME 99.8 fl (81.0-99.0); MEAN CORPUSCULAR HGB 32.5 pg (27.0-31.0); MEAN CORPUSCULAR HGB CONC 32.6 g/dl (33.0-37.0); MEAN PLATELET VOLUME 10.5 fl (9.6-12.3); MONO # 0.7 10*3/uL (0.1-1.0); MONO % 13.9 % (3.0-9.0); NEUT % 58.5 % (47.0-73.0); PLATELET COUNT AUTOMATED 200 10*3/uL (130-400); RED CELL DISTRI WIDTH 12.8 % (0-14.5)
[2021-07-29 11:56] LABS: ALKALINE PHOSPHATASE 116 U/L (45-117); BUN 19 mg/dl (7-24); CHLORIDE 105 mmol/L (98-107); CREATININE 0.75 mg/dL (0.55-1.02); POTASSIUM 4.1 mmol/L (3.5-5.1); SGOT/AST 16 IU/L (3-35); SGPT/ALT 30 U/L (12-78); SODIUM 139 mmol/L (136-145); TOTAL PROTEIN 6.9 gm/dL (6.4-8.2)
[2021-08-01 19:06] LABS: % CD19 0 % (5-21); % CD3 81 % (62-89); % CD4 55 % (35-68); % CD45RA 40 % (19-62); % CD45RO 59 % (38-81); % CD8 25 % (10-46); ABSOLUTE CD19 4 cells/uL (74-510); ABSOLUTE CD3 1107 cells/uL (660-2200); ABSOLUTE CD4 753 cells/uL (490-1600); ABSOLUTE CD45RA 334 cells/uL (260-1000); ABSOLUTE CD45RO 490 cells/uL (490-1200); ABSOLUTE CD8 342 cells/uL (150-1050); ABSOLUTE NATURAL KILLER CELLS 245 cells/uL (74-620); NATURAL KILLER CELLS % 18 % (5-28)
== END | disposition home or self-care (01) ==
LOC: LAB 11:04
PROVIDERS: ATTEND Nurse Practitioner Family
DX: G35 Multiple sclerosis (principal); R53.1 Weakness; D84.821 Immunodeficiency due to drugs; Z79.899 Other long term (current) drug therapy

== ENCOUNTER → 2021-09-11 | Outpatient (CLI) | payer MEDICARE ==
[2021-09-11 10:06] LABS: BASO % 0.6 % (0.0-1.0); EOS # 0.1 10*3/uL (0.0-0.4); EOS % 1.4 % (1.0-4.0); HEMATOCRIT 44.9 % (37.0-47.0); LYMPH # 1.3 10*3/uL (1.3-4.4); MEAN CELL VOLUME 97.6 fl (81.0-99.0); MEAN CORPUSCULAR HGB 32.2 pg (27.0-31.0); MEAN PLATELET VOLUME 10.7 fl (9.6-12.3); MONO # 0.7 10*3/uL (0.1-1.0); MONO % 10.8 % (3.0-9.0); NEUT # 4.2 10*3/uL (2.3-7.9); PLATELET COUNT AUTOMATED 198 10*3/uL (130-400); RED CELL DISTRI WIDTH 12.8 % (0-14.5); WHITE BLOOD COUNT 6.3 10*3/uL (4.8-10.8)
[2021-09-11 10:50] LABS: ALKALINE PHOSPHATASE 103 U/L (45-117); BUN 21 mg/dl (7-24); CHLORIDE 106 mmol/L (98-107); CREATININE 0.81 mg/dL (0.55-1.02); POTASSIUM 3.7 mmol/L (3.5-5.1); SGOT/AST 14 IU/L (3-35); SGPT/ALT 24 U/L (12-78); SODIUM 140 mmol/L (136-145); TOTAL PROTEIN 7.1 gm/dL (6.4-8.2)
[2021-09-13 18:07] LABS: % CD19 3 % (5-21); % CD3 72 % (62-89); % CD4 54 % (35-68); % CD45RA 47 % (19-62); % CD45RO 52 % (38-81); % CD8 20 % (10-46); ABSOLUTE CD19 41 cells/uL (74-510); ABSOLUTE CD3 894 cells/uL (660-2200); ABSOLUTE CD4 672 cells/uL (490-1600); ABSOLUTE CD45RA 314 cells/uL (260-1000); ABSOLUTE CD45RO 349 cells/uL (490-1200); ABSOLUTE CD8 251 cells/uL (150-1050); ABSOLUTE NATURAL KILLER CELLS 300 cells/uL (74-620); NATURAL KILLER CELLS % 24 % (5-28)
== END | disposition home or self-care (01) ==
LOC: LAB 02:47 → US 08:30
PROVIDERS: Nurse Practitioner Family; ATTEND Urology
DX: N13.1 Hydronephrosis with ureteral stricture, not elsewhere classified (principal); G35 Multiple sclerosis; R53.1 Weakness; N13.30 Unspecified hydronephrosis; D84.821 Immunodeficiency due to drugs; Z79.899 Other long term (current) drug therapy

== ENCOUNTER → 2021-10-28 | Outpatient (CLI) | payer MEDICARE ==
[2021-10-28 08:50] LABS: BASO # 0.1 10*3/uL (0.0-0.1); BASO % 0.8 % (0.0-1.0); EOS # 0.3 10*3/uL (0.0-0.4); EOS % 4.4 % (1.0-4.0); HEMATOCRIT 42.9 % (37.0-47.0); LYMPH # 1.6 10*3/uL (1.3-4.4); LYMPH % 25.4 % (27.0-41.0); MEAN CELL VOLUME 96.8 fl (81.0-99.0); MEAN CORPUSCULAR HGB 32.3 pg (27.0-31.0); MEAN CORPUSCULAR HGB CONC 33.3 g/dl (33.0-37.0); MEAN PLATELET VOLUME 10.1 fl (9.6-12.3); MONO # 0.8 10*3/uL (0.1-1.0); MONO % 13.1 % (3.0-9.0); NEUT # 3.4 10*3/uL (2.3-7.9); NEUT % 56.1 % (47.0-73.0); PLATELET COUNT AUTOMATED 223 10*3/uL (130-400); RED BLOOD COUNT 4.43 10*6/uL (4.10-5.10); RED CELL DISTRI WIDTH 13.3 % (0-14.5); WHITE BLOOD COUNT 6.1 10*3/uL (4.8-10.8)
[2021-10-28 09:16] LABS: ALKALINE PHOSPHATASE 117 U/L (45-117); BUN 21 mg/dl (7-24); CHLORIDE 107 mmol/L (98-107); CREATININE 0.82 mg/dL (0.55-1.02); POTASSIUM 3.7 mmol/L (3.5-5.1); SGOT/AST 13 IU/L (3-35); SGPT/ALT 22 U/L (12-78); SODIUM 140 mmol/L (136-145)
[2021-10-30 21:06] LABS: % CD19 3 % (5-21); % CD3 75 % (62-89); % CD4 54 % (35-68); % CD45RA 47 % (19-62); % CD45RO 53 % (38-81); % CD8 23 % (10-46); ABSOLUTE CD19 55 cells/uL (74-510); ABSOLUTE CD3 1281 cells/uL (660-2200); ABSOLUTE CD4 917 cells/uL (490-1600); ABSOLUTE CD45RA 455 cells/uL (260-1000); ABSOLUTE CD45RO 507 cells/uL (490-1200); ABSOLUTE CD8 390 cells/uL (150-1050); ABSOLUTE NATURAL KILLER CELLS 359 cells/uL (74-620); CD4:CD8 RATIO 2.35 ratio (0.80-6.17); NATURAL KILLER CELLS % 21 % (5-28)
== END | disposition home or self-care (01) ==
LOC: LAB 01:52 → MRI 09:00 → LAB 09:00
PROVIDERS: ATTEND Specialist
DX: Z12.31 Encounter for screening mammogram for malignant neoplasm of breast (principal); R53.1 Weakness; D84.821 Immunodeficiency due to drugs; G35 Multiple sclerosis; Z79.899 Other long term (current) drug therapy

== ENCOUNTER → 2021-11-01 | Outpatient (CLI) | payer MEDICARE | END | disposition home or self-care (01) | LOC: RAD 01:50 | PROVIDERS: ATTEND Internal Medicine | DX: M85.88 Other specified disorders of bone density and structure, other site (principal); M81.0 Age-related osteoporosis without current pathological fracture; Z87.39 Personal history of other diseases of the musculoskeletal system and connective tissue ==

== ENCOUNTER → 2021-11-21 | Outpatient (CLI) | payer MEDICARE ==
[2021-11-21 09:51] LABS: THYROXINE (T4) TOTAL 8.2 ug/dl (4.8-13.9)
[2021-11-21 09:57] LABS: THYROID STIM HORMONE (HS) 1.97 uIU/ml (0.358-4.75)
== END | disposition home or self-care (01) ==
LOC: LAB 01:29
PROVIDERS: ATTEND Specialist
DX: G35 Multiple sclerosis (principal); E55.9 Vitamin D deficiency, unspecified; R53.1 Weakness

== ENCOUNTER → 2022-02-06 | Outpatient (CLI) | payer MEDICARE ==
[2022-02-06 13:00] LABS: BUN 18 mg/dl (7-24); CHLORIDE 110 mmol/L (98-107); CREATININE 0.69 mg/dL (0.55-1.02); POTASSIUM 4.2 mmol/L (3.5-5.1); SODIUM 142 mmol/L (136-145)
== END | disposition home or self-care (01) ==
LOC: LAB 12:00
PROVIDERS: ATTEND Urology
DX: G35 Multiple sclerosis (principal); N13.1 Hydronephrosis with ureteral stricture, not elsewhere classified; R10.9 Unspecified abdominal pain

== ENCOUNTER → 2022-04-14 | Outpatient (CLI) | payer MEDICARE ==
[2022-04-14 10:08] LABS: BASO # 0.1 10*3/uL (0.0-0.1); BASO % 1.1 % (0.0-1.0); EOS # 0.1 10*3/uL (0.0-0.4); EOS % 2.4 % (1.0-4.0); HEMATOCRIT 42.2 % (37.0-47.0); LYMPH # 1.4 10*3/uL (1.3-4.4); LYMPH % 26.4 % (27.0-41.0); MEAN CORPUSCULAR HGB 32.9 pg (27.0-31.0); MEAN CORPUSCULAR HGB CONC 32.9 g/dl (33.0-37.0); MEAN PLATELET VOLUME 10.1 fl (9.6-12.3); MONO # 0.6 10*3/uL (0.1-1.0); MONO % 11.4 % (3.0-9.0); NEUT # 3.2 10*3/uL (2.3-7.9); NEUT % 58.5 % (47.0-73.0); PLATELET COUNT AUTOMATED 218 10*3/uL (130-400); RED BLOOD COUNT 4.22 10*6/uL (4.10-5.10); RED CELL DISTRI WIDTH 13.4 % (0-14.5); WHITE BLOOD COUNT 5.5 10*3/uL (4.8-10.8)
[2022-04-14 10:26] LABS: CHLORIDE 104 mmol/L (98-107); SODIUM 138 mmol/L (136-145)
[2022-04-14 10:41] LABS: ALKALINE PHOSPHATASE 93 U/L (45-117); BUN 36 mg/dl (7-24); SGOT/AST 12 IU/L (3-35); SGPT/ALT 29 U/L (12-78)
[2022-04-17 14:07] LABS: % CD19 0 % (5-21); % CD3 84 % (62-89); % CD4 60 % (35-68); % CD45RA 47 % (19-62); % CD45RO 53 % (38-81); % CD8 25 % (10-46); ABSOLUTE CD19 0 cells/uL (74-510); ABSOLUTE CD3 1311 cells/uL (660-2200); ABSOLUTE CD4 942 cells/uL (490-1600); ABSOLUTE CD45RA 486 cells/uL (260-1000); ABSOLUTE CD45RO 552 cells/uL (490-1200); ABSOLUTE CD8 390 cells/uL (150-1050); ABSOLUTE NATURAL KILLER CELLS 237 cells/uL (74-620); NATURAL KILLER CELLS % 15 % (5-28)
== END | disposition home or self-care (01) ==
LOC: LAB 03:51
PROVIDERS: ATTEND Specialist
DX: G35 Multiple sclerosis (principal); D84.821 Immunodeficiency due to drugs; E55.9 Vitamin D deficiency, unspecified; Z79.899 Other long term (current) drug therapy

== ENCOUNTER → 2022-06-25 | Outpatient (CLI) | payer MEDICARE ==
[2022-06-25 10:54] LABS: BASO % 0.8 % (0.0-1.0); EOS # 0.1 10*3/uL (0.0-0.4); EOS % 2.6 % (1.0-4.0); HEMATOCRIT 42.6 % (37.0-47.0); LYMPH # 1.4 10*3/uL (1.3-4.4); MEAN CELL VOLUME 102.4 fl (81.0-99.0); MEAN CORPUSCULAR HGB 32.9 pg (27.0-31.0); MEAN CORPUSCULAR HGB CONC 32.2 g/dl (33.0-37.0); MEAN PLATELET VOLUME 9.9 fl (9.6-12.3); MONO # 0.6 10*3/uL (0.1-1.0); MONO % 12.7 % (3.0-9.0); NEUT # 2.8 10*3/uL (2.3-7.9); NEUT % 56.1 % (47.0-73.0); PLATELET COUNT AUTOMATED 198 10*3/uL (130-400); RED BLOOD COUNT 4.16 10*6/uL (4.10-5.10); RED CELL DISTRI WIDTH 12.3 % (0-14.5)
[2022-06-25 11:09] LABS: ALKALINE PHOSPHATASE 83 U/L (46-116); BUN 22 mg/dl (9-23); CHLORIDE 101 mmol/L (98-107); POTASSIUM 3.9 mmol/L (3.4-5.1); SGPT/ALT 22 U/L (10-49); TOTAL PROTEIN 6.5 gm/dL (6.0-8.0)
[2022-06-29 22:05] LABS: % CD19 0 % (5-21); % CD3 86 % (62-89); % CD4 63 % (35-68); % CD45RA 47 % (19-62); % CD45RO 52 % (38-81); % CD8 24 % (10-46); ABSOLUTE CD19 0 cells/uL (74-510); ABSOLUTE CD3 1180 cells/uL (660-2200); ABSOLUTE CD4 864 cells/uL (490-1600); ABSOLUTE CD45RA 393 cells/uL (260-1000); ABSOLUTE CD45RO 438 cells/uL (490-1200); ABSOLUTE CD8 336 cells/uL (150-1050); ABSOLUTE NATURAL KILLER CELLS 189 cells/uL (74-620); CD4:CD8 RATIO 2.62 ratio (0.80-6.17); NATURAL KILLER CELLS % 14 % (5-28)
== END | disposition home or self-care (01) ==
LOC: LAB 02:33
PROVIDERS: ATTEND Specialist
DX: G35 Multiple sclerosis (principal); R53.1 Weakness; R27.0 Ataxia, unspecified; Z79.60 Long term (current) use of unspecified immunomodulators and immunosuppressants; Z79.899 Other long term (current) drug therapy

== ENCOUNTER → 2022-10-29 | Outpatient (CLI) | payer MEDICARE ==
[2022-10-29 10:04] LABS: BASO % 0.3 % (0.0-1.0); EOS # 0.1 10*3/uL (0.0-0.4); EOS % 1.1 % (1.0-4.0); HEMATOCRIT 40.1 % (37.0-47.0); LYMPH # 1.3 10*3/uL (1.3-4.4); LYMPH % 18.3 % (27.0-41.0); MEAN CORPUSCULAR HGB 32.5 pg (27.0-31.0); MEAN CORPUSCULAR HGB CONC 33.2 g/dl (33.0-37.0); MEAN PLATELET VOLUME 10.2 fl (9.6-12.3); MONO # 0.8 10*3/uL (0.1-1.0); MONO % 10.8 % (3.0-9.0); NEUT # 5.1 10*3/uL (2.3-7.9); NEUT % 69.2 % (47.0-73.0); PLATELET COUNT AUTOMATED 212 10*3/uL (130-400); RED BLOOD COUNT 4.09 10*6/uL (4.10-5.10); WHITE BLOOD COUNT 7.3 10*3/uL (4.8-10.8)
[2022-10-29 10:58] LABS: ALKALINE PHOSPHATASE 81 U/L (46-116); BUN 19 mg/dl (9-23); CHLORIDE 104 mmol/L (98-107); POTASSIUM 3.4 mmol/L (3.4-5.1); SGPT/ALT 36 U/L (10-49); TOTAL PROTEIN 6.9 gm/dL (6.0-8.0)
[2022-10-29 11:00] LABS: CHOLESTEROL 184 mg/dL (<200); LDL CHOLESTEROL 101 mg/dL (9-159); TRIGLYCERIDES 90 mg/dl (<150)
[2022-10-31 20:07] LABS: % CD19 3 % (5-21); % CD3 78 % (62-89); % CD4 56 % (35-68); % CD45RA 47 % (19-62); % CD45RO 53 % (38-81); % CD8 22 % (10-46); ABSOLUTE CD19 46 cells/uL (74-510); ABSOLUTE CD3 1112 cells/uL (660-2200); ABSOLUTE CD4 805 cells/uL (490-1600); ABSOLUTE CD45RA 390 cells/uL (260-1000); ABSOLUTE CD45RO 444 cells/uL (490-1200); ABSOLUTE CD8 319 cells/uL (150-1050); ABSOLUTE NATURAL KILLER CELLS 270 cells/uL (74-620); CD4:CD8 RATIO 2.55 ratio (0.80-6.17); NATURAL KILLER CELLS % 19 % (5-28)
== END | disposition home or self-care (01) ==
LOC: LAB 08:42 → MRI 09:00 → MAMMO 10:30
PROVIDERS: Physician Assistant Medical; ATTEND Internal Medicine
DX: Z12.31 Encounter for screening mammogram for malignant neoplasm of breast (principal); Z29.8 Encounter for other specified prophylactic measures; G35 Multiple sclerosis; R90.82 White matter disease, unspecified; N64.9 Disorder of breast, unspecified; Z92.25 Personal history of immunosuppression therapy; D72.819 Decreased white blood cell count, unspecified; Z79.899 Other long term (current) drug therapy; Z79.60 Long term (current) use of unspecified immunomodulators and immunosuppressants

== ENCOUNTER → 2023-03-18 | Outpatient (CLI) | payer MEDICARE | END | disposition home or self-care (01) | LOC: US 01:24 | PROVIDERS: ATTEND Urology | DX: N13.30 Unspecified hydronephrosis (principal); N13.0 Hydronephrosis with ureteropelvic junction obstruction ==

== ENCOUNTER → 2023-04-16 | Outpatient (CLI) | payer MEDICARE | END | disposition home or self-care (01) | LOC: CARD 04-07 12:00 | PROVIDERS: ATTEND Registered Nurse | DX: I10 Essential (primary) hypertension (principal); G35 Multiple sclerosis; R60.0 Localized edema ==

== ENCOUNTER → 2023-04-23 | Outpatient (CLI) | payer MEDICARE ==
[2023-04-23 11:31] LABS: BASO % 0.4 % (0.0-1.0); EOS # 0.2 10*3/uL (0.0-0.4); EOS % 2.4 % (1.0-4.0); HEMATOCRIT 43.8 % (37.0-47.0); LYMPH # 1.5 10*3/uL (1.3-4.4); LYMPH % 20.6 % (27.0-41.0); MEAN CELL VOLUME 96.5 fl (81.0-99.0); MEAN CORPUSCULAR HGB 32.2 pg (27.0-31.0); MEAN CORPUSCULAR HGB CONC 33.3 g/dl (33.0-37.0); MEAN PLATELET VOLUME 9.9 fl (9.6-12.3); MONO # 0.7 10*3/uL (0.1-1.0); MONO % 10.3 % (3.0-9.0); NEUT # 4.8 10*3/uL (2.3-7.9); PLATELET COUNT AUTOMATED 249 10*3/uL (130-400); RED BLOOD COUNT 4.54 10*6/uL (4.10-5.10); WHITE BLOOD COUNT 7.2 10*3/uL (4.8-10.8)
[2023-04-23 12:30] LABS: ALKALINE PHOSPHATASE 101 U/L (46-116); BUN 19 mg/dl (9-23); CHLORIDE 105 mmol/L (98-107); POTASSIUM 3.9 mmol/L (3.4-5.1); SGPT/ALT 26 U/L (5-49); THYROXINE (T4) TOTAL 6.4 ug/dl (4.5-10.9); TOTAL PROTEIN 6.9 gm/dL (6.0-8.0)
[2023-04-25 22:03] LABS: % CD19 8 % (5-21); % CD3 74 % (62-89); % CD4 52 % (35-68); % CD45RA 52 % (19-62); % CD45RO 48 % (38-81); % CD8 24 % (10-46); ABSOLUTE CD19 128 cells/uL (74-510); ABSOLUTE CD3 1199 cells/uL (660-2200); ABSOLUTE CD4 842 cells/uL (490-1600); ABSOLUTE CD45RA 452 cells/uL (260-1000); ABSOLUTE CD45RO 415 cells/uL (490-1200); ABSOLUTE CD8 390 cells/uL (150-1050); ABSOLUTE NATURAL KILLER CELLS 285 cells/uL (74-620); CD4:CD8 RATIO 2.17 ratio (0.80-6.17); NATURAL KILLER CELLS % 18 % (5-28)
== END ==
LOC: LAB 11:05
PROVIDERS: ATTEND Physician Assistant
DX: G35 Multiple sclerosis (principal); D72.819 Decreased white blood cell count, unspecified; N31.9 Neuromuscular dysfunction of bladder, unspecified; R53.1 Weakness; R27.0 Ataxia, unspecified; Z29.89 Encounter for other specified prophylactic measures; R53.83 Other fatigue

== ENCOUNTER → 2023-08-19 | Outpatient (CLI) | payer MEDICARE ==
[2023-08-19 15:31] LABS: BILIRUBIN Negative (Negative); BLOOD Negative (Negative); CLARITY Clear (Clear); COLOR Yellow (Yellow); GLUCOSE Negative (Negative); KETONE Negative (Negative); LEUKO ESTERASE 1+ (Negative); NITRITE Negative (Negative); UROBILINOGEN 0.2 E.U./dl (0.0-1.0)
[2023-08-19 15:43] LABS: URINE CREATININE RANDOM 96.43 mg/dL
[2023-08-19 15:55] LABS: BACTERIA 1+
[2023-08-19 15:59] LABS: BUN 20 mg/dl (9-23); CHLORIDE 99 mmol/L (98-107); POTASSIUM 3.8 mmol/L (3.4-5.1)
== END | disposition home or self-care (01) ==
LOC: LAB 14:02
PROVIDERS: ATTEND Urology
DX: G35 Multiple sclerosis (principal); N13.5 Crossing vessel and stricture of ureter without hydronephrosis; R10.9 Unspecified abdominal pain; N13.1 Hydronephrosis with ureteral stricture, not elsewhere classified; N20.0 Calculus of kidney

== ENCOUNTER 2023-11-01 23:25 | Emergency (ER) | payer MEDICARE ==
[~2023-11-01] VITALS: Ht 162.5 cm; Wt 108.0 kg
[~2023-11-01 23:25] MED LIST changes: +CENTRUM WOMEN PO; +GARLIC OIL1000 M1 PO; +HYDROCHLOROTHIA25 M1 PO; +LASIX20 MG PO; +MINOCYCLINE HYD50 MG PO; +POTASSIUM CITR15 ME1 PO; +VITAMIN D3125 MC1 PO
[2023-11-01 23:52] LABS: BASO % 0.5 % (0.0-1.0); EOS % 0.3 % (1.0-4.0); HEMATOCRIT 47.1 % (37.0-47.0); LYMPH # 1.4 10*3/uL (1.3-4.4); LYMPH % 17.2 % (27.0-41.0); MEAN CELL VOLUME 98.1 fl (81.0-99.0); MEAN CORPUSCULAR HGB 32.9 pg (27.0-31.0); MEAN CORPUSCULAR HGB CONC 33.5 g/dl (33.0-37.0); MEAN PLATELET VOLUME 10.6 fl (9.6-12.3); MONO # 1.1 10*3/uL (0.1-1.0); MONO % 13.4 % (3.0-9.0); NEUT # 5.4 10*3/uL (2.3-7.9); NEUT % 68.3 % (47.0-73.0); PLATELET COUNT AUTOMATED 237 10*3/uL (130-400); RED CELL DISTRI WIDTH 12.6 % (0-14.5); WHITE BLOOD COUNT 7.9 10*3/uL (4.8-10.8)
[2023-11-02 00:20] LABS: POTASSIUM 3.4 mmol/L (3.4-5.1)
== END 2023-11-02 02:30 | disposition home or self-care (01) ==
LOC: ED 23:25
PROVIDERS: Internal Medicine
DX: S16.1XXA Strain of muscle, fascia and tendon at neck level, initial encounter (principal); I10 Essential (primary) hypertension; R53.1 Weakness; Z87.442 Personal history of urinary calculi; Z88.8 Allergy status to other drugs, medicaments and biological substances; Z90.710 Acquired absence of both cervix and uterus; Z90.89 Acquired absence of other organs; Z98.890 Other specified postprocedural states; X58.XXXA Exposure to other specified factors, initial encounter; Y93.89 Activity, other specified; Y92.009 Unspecified place in unspecified non-institutional (private) residence as the place of occurrence of the external cause; Y99.8 Other external cause status

== ENCOUNTER → 2023-11-04 | Outpatient (CLI) | payer MEDICARE | END | disposition home or self-care (01) | LOC: MRI 08-24 13:00 → MAMMO 09:00 → MRI 10:00 | PROVIDERS: ATTEND Specialist | DX: G35 Multiple sclerosis (principal); M51.36 Other intervertebral disc degeneration, lumbar region; M48.061 Spinal stenosis, lumbar region without neurogenic claudication; M85.88 Other specified disorders of bone density and structure, other site; M47.816 Spondylosis without myelopathy or radiculopathy, lumbar region ==

== ENCOUNTER → 2023-11-16 | Outpatient (CLI) | payer MEDICARE | END | disposition home or self-care (01) | LOC: MAMMO 11-04 09:00 → RAD 11-09 10:30 | PROVIDERS: ATTEND Internal Medicine | DX: Z12.31 Encounter for screening mammogram for malignant neoplasm of breast (principal); M81.0 Age-related osteoporosis without current pathological fracture; N95.0 Postmenopausal bleeding ==

== ENCOUNTER → 2023-12-17 | Outpatient (CLI) | payer MEDICARE ==
[2023-12-17 13:07] LABS: BILIRUBIN Negative (Negative); BLOOD Negative (Negative); CLARITY Clear (Clear); COLOR Dark Yellow (Yellow); GLUCOSE Negative (Negative); KETONE Negative (Negative); LEUKO ESTERASE Negative (Negative); NITRITE Negative (Negative); PH 5.5 (4.5-8.0); SPECIFIC GRAVITY 1.025 (1.001-1.030)
[2023-12-17 13:15] LABS: WBC 0-2 wbc/hpf (0-5)
[2023-12-17 13:22] LABS: BUN 16 mg/dl (9-23); CHLORIDE 108 mmol/L (98-107); POTASSIUM 3.9 mmol/L (3.4-5.1)
== END | disposition home or self-care (01) ==
LOC: LAB 12:28
PROVIDERS: ATTEND Internal Medicine Nephrology
DX: I10 Essential (primary) hypertension (principal); N20.0 Calculus of kidney

== ENCOUNTER 2024-03-07 23:07 | Emergency (ER) | payer MEDICARE ==
[~2024-03-07] VITALS: Ht 162.5 cm; Wt 102.1 kg
[2024-03-07] MEDS ORDERED: BINOSTO PO (23:25)
[2024-03-07 23:43] LABS: BILIRUBIN Negative (Negative); BLOOD Negative (Negative); CLARITY Clear (Clear); COLOR Yellow (Yellow); GLUCOSE Negative (Negative); KETONE Negative (Negative); LEUKO ESTERASE Trace (Negative); NITRITE Negative (Negative); SPECIFIC GRAVITY <= 1.005 (1.001-1.030); UROBILINOGEN 0.2 E.U./dl (0.0-1.0)
[2024-03-08 00:18] LABS: BASO % 0.4 % (0.0-1.0); EOS # 0.1 10*3/uL (0.0-0.4); EOS % 1.1 % (1.0-4.0); HEMATOCRIT 45.5 % (37.0-47.0); LYMPH % 26.9 % (27.0-41.0); MEAN CELL VOLUME 98.3 fl (81.0-99.0); MEAN CORPUSCULAR HGB 32.6 pg (27.0-31.0); MEAN CORPUSCULAR HGB CONC 33.2 g/dl (33.0-37.0); MEAN PLATELET VOLUME 9.7 fl (9.6-12.3); MONO # 0.8 10*3/uL (0.1-1.0); MONO % 10.6 % (3.0-9.0); NEUT # 4.4 10*3/uL (2.3-7.9); NEUT % 60.9 % (47.0-73.0); PLATELET COUNT AUTOMATED 241 10*3/uL (130-400); RED BLOOD COUNT 4.63 10*6/uL (4.10-5.10); RED CELL DISTRI WIDTH 12.9 % (0-14.5); WHITE BLOOD COUNT 7.3 10*3/uL (4.8-10.8)
[2024-03-08 00:50] LABS: ALKALINE PHOSPHATASE 86 U/L (46-116); BUN 24 mg/dl (9-23); CHLORIDE 101 mmol/L (98-107); POTASSIUM 3.7 mmol/L (3.4-5.1); SGPT/ALT 23 U/L (5-49); TOTAL PROTEIN 7.6 gm/dL (6.0-8.0)
[2024-03-08] MEDS ORDERED: Ketorolac Tromethamine 30 MG/ML VIAL IM ONE (01:10)
== END 2024-03-08 01:24 | disposition home or self-care (01) ==
LOC: ED 23:07
PROVIDERS: Internal Medicine
DX: M54.50 Low back pain, unspecified (principal); R10.30 Lower abdominal pain, unspecified; E87.1 Hypo-osmolality and hyponatremia; I10 Essential (primary) hypertension; Z87.442 Personal history of urinary calculi; Z88.8 Allergy status to other drugs, medicaments and biological substances; Z90.710 Acquired absence of both cervix and uterus; Z90.89 Acquired absence of other organs; Z98.890 Other specified postprocedural states

== ENCOUNTER → 2024-06-22 | Outpatient (CLI) | payer MEDICARE ==
[~2024-06-22] MED LIST changes: +BINOSTO PO
== END | disposition home or self-care (01) ==
LOC: MRI 01:35
PROVIDERS: ATTEND Physician Assistant Medical
DX: M47.817 Spondylosis without myelopathy or radiculopathy, lumbosacral region (principal); G35 Multiple sclerosis; R53.1 Weakness; N31.9 Neuromuscular dysfunction of bladder, unspecified; R27.0 Ataxia, unspecified; M51.379 Other intervertebral disc degeneration, lumbosacral region without mention of lumbar back pain or lower extremity pain

== ENCOUNTER → 2025-01-04 | Outpatient (CLI) | payer MEDICARE ==
[~2025-01-04] MED LIST changes: +ASPIRIN ADULT L81 M2 PO; +ATORVASTATIN CA20 M1 PO; +FUROSEMIDE40 MG PO; +MELATONIN5 M1 SL; +POTASSIUM CHLO20 ME4 PO
== END | disposition home or self-care (01) ==
LOC: MAMMO 01:21
PROVIDERS: ATTEND Internal Medicine
DX: Z12.31 Encounter for screening mammogram for malignant neoplasm of breast (principal); R92.323 Mammographic fibroglandular density, bilateral breasts

== ENCOUNTER → 2025-02-04 | Outpatient (CLI) | payer MEDICARE | END | disposition home or self-care (01) | LOC: RAD 10:21 | PROVIDERS: ATTEND Internal Medicine | DX: R52 Pain, unspecified (principal) ==